=== PATIENT | female | born 1990 | race Two or more races ===

== ENCOUNTER 2022-04-27 09:15 | Inpatient (IN) ==
[2022-04-27 09:33] VITALS: BMI 29.3
[2022-04-27] MEDS ORDERED: PHENERGAN INJ 25 MG IM PRN ×3 (09:49→14:31)
[2022-04-27] MEDS ORDERED: PITOCIN IVP ONE (09:49)
[2022-04-27] MEDS ORDERED: D5 LR + PITOCIN 10 UNITS/L 10 UNITS/1,000 ML BAG IV PRN (09:49)
[2022-04-27] MEDS ORDERED: REGLAN INJ 10 MG VIAL IVP PRN (09:49)
[2022-04-27] MEDS ORDERED: STADOL INJ IVP PRN ×2 (09:51→11:22)
[2022-04-27 09:56] LABS: BILIRUBIN,URINE NEGATIVE (NEGATIVE); BLOOD/HEMOGLOBIN,URINE 2+ (NEGATIVE); GLUCOSE, URINE NEGATIVE (NEGATIVE); KETONES,URINE NEGATIVE (NEGATIVE); LEUKOCYTE ESTERASE ,URINE NEGATIVE (NEGATIVE); NITRITES,URINE NEGATIVE (NEGATIVE); PROTEIN,URINE 1+ (NEGATIVE); UROBILINOGEN,URINE NORMAL (NORMAL)
[2022-04-27] MEDS ORDERED: LR 1,000 ML IV 1,000 ML IV SCH (10:00)
[2022-04-27] MEDS ORDERED: D5 LR + PITOCIN 10 UNITS/L 10 UNITS/1,000 ML BAG IV ONE (10:09)
[2022-04-27 10:11] LABS: APPEARANCE,URINE CLEAR (CLEAR); COLOR,URINE YELLOW (YELLOW); RBC,URINE NONE SEEN /HPF (0-3)
[2022-04-27 10:12] LABS: BACTERIA,URINE NEGATIVE /HPF (NEGATIVE); SQUAMOUS EPITHELIAL CELL,UR RARE /HPF (NEGATIVE)
[2022-04-27 10:13] LABS: AMNISURE ROM TEST NO MEMBRANES RUPTURE (NO RUPTURE)
[2022-04-27 10:23] LABS: LYMPHOCYTES # (AUTO) 1.4 X10^3/uL (1.3-2.9); MONOCYTES # (AUTO) 0.5 x10^3/uL (0.3-0.8); NEUTROPHILS # (AUTO) 3.2 x10^3/uL (2.2-4.8); WHITE BLOOD COUNT 5.1 X10^3/uL (3.6-10.0)
[2022-04-27 10:33] LABS: BASOPHILS % (AUTO) 0.4 % (0.2-1.0); EOSINOPHILS % (AUTO) 0.7 % (0.9-2.9); HEMATOCRIT 35.8 % (36.0-47.0); HEMOGLOBIN 12.1 g/dL (12.0-16.0); LYMPHOCYTES % (AUTO) 27.7 % (21.0-51.0); MEAN CORPUSCULAR HEMOGLOBIN 27.4 pg (27.0-34.0); MEAN CORPUSCULAR HGB CONC 33.8 g/dL (33.0-35.0); MEAN CORPUSCULAR VOLUME 81.1 fL (80.0-100.0); MEAN PLATELET VOLUME 7.7 fL (7.4-11.0); MONOCYTES % (AUTO) 9.8 % (0.0-13.0); NEUTROPHILS % (AUTO) 61.4 % (42.0-75.0); RED BLOOD COUNT 4.41 X10^6/uL (3.5-5.4); RED CELL DISTRIBUTION WIDTH 14.8 % (11.6-16.5)
[2022-04-27 10:41] LABS: BLOOD UREA NITROGEN 8 mg/dL (7-18); CALCIUM 7.9 mg/dL (8.5-10.1); CHLORIDE 102 mmol/L (98-107); CREATININE 0.48 mg/dL (0.55-1.02); SODIUM 133 mmol/L (136-145); eGFR NON BLACK RACES > 60 (>60)
[2022-04-27] MEDS ORDERED: STADOL INJ ONE ×2 (11:45→14:25)
[2022-04-27] MEDS ORDERED: D5 1/2 NS 1,000 mL + PITOCIN 20 UNITS/L IV 20 UNITS/1,000 ML BAG IV ONE (12:00)
[2022-04-27] MEDS ORDERED: PITOCIN ONE (12:00)
[2022-04-27] MEDS ORDERED: HEMABATE IM ONE (12:47)
[2022-04-27] MEDS ORDERED: MOTRIN TAB 800 MG PO PRN ×2 (14:09→14:31)
[2022-04-27] MEDS ORDERED: DERMOPLAST PAIN RELIEF SPRAY TOP PRN (14:31)
[2022-04-27] MEDS ORDERED: AMBIEN PO PRN (14:31)
[2022-04-27] MEDS ORDERED: MILK OF MAGNESIA PO PRN (14:31)
[2022-04-27] MEDS ORDERED: D5 1/2 NS 1,000 ML 1,000 ML with PITOCIN 20 UNITS IV SCH ×2 (15:00)
[2022-04-27] MEDS: D5 1/2 NS 1,000 ML 1,000 ML with PITOCIN 20 UNITS IV SCH ×4 (15:22→22:10)
[2022-04-27] MEDS: MOTRIN TAB 800 MG PO PRN (21:50)
[2022-04-28 06:26] LABS: HEMATOCRIT 25.7 % (36.0-47.0)
[2022-04-28 06:30] LABS: HEMOGLOBIN 8.9 g/dL (12.0-16.0)
[2022-04-28] MEDS: D5 1/2 NS 1,000 ML 1,000 ML with PITOCIN 20 UNITS IV SCH ×4 (08:28→14:30)
[2022-04-28] MEDS: MOTRIN TAB 800 MG PO PRN (08:32)
[2022-04-28] MEDS: PRENATAL PLUS PO SCH (08:32)
[2022-04-28] MEDS ORDERED: NS 100 ML IV 100 ML with VENOFER 400 MG IV NR ×4 (08:36→09:17)
[2022-04-29] MEDS: MOTRIN TAB 800 MG PO PRN (00:13)
[2022-04-29] MEDS: PRENATAL PLUS PO SCH (08:57)
[2022-04-29 08:59] LABS: HEMATOCRIT 27.1 % (36.0-47.0); HEMOGLOBIN 9.5 g/dL (12.0-16.0)
[2022-04-29] MEDS ORDERED: NS 100 ML IV 100 ML with VENOFER 400 MG IV NR ×2 (12:32)
[2022-04-29 13:49] VITALS: BP 116/69
== END 2022-04-29 14:30 | disposition home or self-care (01) | DRG 807 ==
LOC: ER 09:15 → LD 09:42 → MED/SURG 14:36
PROVIDERS: ADMIT Obstetrics & Gynecology Obstetrics; ATTEND Obstetrics & Gynecology Obstetrics
DX: Z37.0 Single live birth; O80 Encounter for full-term uncomplicated delivery; Z3A.39 39 weeks gestation of pregnancy; Z20.822 Contact with and (suspected) exposure to COVID-19